=== PATIENT | male | born 1955 | race Asian ===

== ENCOUNTER 2017-06-07 14:54 | Emergency (ER) | payer SELFPAY ==
[~2017-06-07] VITALS: Ht 167.6 cm; Wt 72.6 kg
[2017-06-07 15:20] VITALS: BP 156/108
== END 2017-06-07 19:18 | disposition left against medical advice (07) ==
LOC: ER 14:54
DX: R51 Headache (principal); R73.9 Hyperglycemia, unspecified; Z53.21 Procedure and treatment not carried out due to patient leaving prior to being seen by health care provider
CPT/HCPCS: 82962